=== PATIENT | male | born 1995 | race Caucasian/White ===

== ENCOUNTER 2019-09-12 03:15 | Emergency (ER) | payer OTHER ==
[~2019-09-12] VITALS: Ht 182.9 cm; Wt 92.2 kg
--- NOTE | 2019-09-12 03:18 | PHYS DOC ---
General Adult HPI: HPI: "... I was using a hand saw on some wood...and slipped..caught my fingers good..." Patient is a 24 year old male who presents with above hx and complaints of 3 and 4 th Lt.hand finger lacerations. Patient has jagged avulsed type lacerations to the tips of fourth and third fingers. Lacerations are approximately 2 cm each in length. Laceration on fourth finger does not require repair but nail was trimmed back to the edge of laceration. Laceration on third finger avascular skin trimmed. Patient is normally healthy. Patient works at [employer]. Patient thinks his last tetanus approximately 5 years ago. Patient is right-hand dominant. No history of immunosuppression. No history of recent travel outside [facility]. Review of Systems: Review of Systems: Constitutional: Denies fever or chills Eyes: Denies change in visual acuity HENT: Denies nasal congestion or sore throat Respiratory: Denies cough or shortness of breath Cardiovascular: Denies chest pain or edema GI: Denies abdominal pain, nausea, vomiting, bloody stools or diarrhea : Denies dysuria Musculoskeletal: Denies back pain or joint pain Integument: Denies rash. Complains of lacerations to left hand Neurologic: Denies headache, focal weakness or sensory changes Endocrine: Denies polyuria or polydipsia Lymphatic: Denies swollen glands Psychiatric: Denies depression or anxiety Heart Score: Risk Factors: Risk Factors: DM, Current or recent (<one month) smoker, HTN, HLP, family h istory of CAD, obesity. Risk Scores: Score 0 - 3: 2.5% MACE over next 6 weeks - Discharge Home Score 4 - 6: 20.3% MACE over next 6 weeks - Admit for Clinical Observation Score 7 - 10: 72.7% MACE over next 6 weeks - Early Invasive Strategies Family History: Family History: Noncontributory Current Medications: Current Meds: See nursing for home meds Allergies: Allergies: No known drug allergies Physical Exam: PE: Constitutional: Well developed, well nourished, no acute distress, non-toxic appearance. [] HENT: Normocephalic, atraumatic, bilateral external ears normal, oropharynx moist, no oral exudates, nose normal. [] Eyes: PERRLA, EOMI, conjunctiva normal, no discharge. [] Neck: Normal range of motion, no tenderness, supple, no stridor. [] Cardiovascular:Heart rate regular rhythm, no murmur [] Lungs & Thorax: Bilateral breath sounds clear to auscultation [] Abdomen: Bowel sounds normal, soft, no tenderness, no masses, no pulsatile masses. [] Skin: Warm, dry, no erythema, no rash. [] Complaints of laceration as per HPI Back: No tenderness, no CVA tenderness. [] Extremities: No tenderness, no cyanosis, no clubbing, ROM intact, no edema. [] Neurologic: Alert and oriented X 3, normal motor function, normal sensory function, no focal deficits noted. [] Psychologic: Affect normal, judgement normal, mood normal. [] EKG: EKG: [] Radiology/Procedures: Radiology/Procedures: [] Course & Med Decision Making: Course & Med Decision Making Pertinent Labs and Imaging studies reviewed. (See chart for details) Laceration repair- Fingers cleaned with saline and Betadine. Patient received a digital block of 2% lidocaine as well as local infiltration of lidocaine at laceration sites. Patient then scrubbed hand and sink under running water and surgical soap,. Laceration re irrigated with normal saline and closed with 4-0 Prolene x6 simple sutures to 3 rd finger. Laceration on 4th finger did not require repair but as HPI nail was trimmed back to laceration edge. Patient's tetanus was updated. Dressing applied back to tracing. Patient keep laceration clean and dry. Dressing may stay in place if it does not become soiled or wet next 3 days. Patient to monitor for infection. Patient return if any concerns. Patient take [id number] Tylenol and ibuprofen. Patient's sutures to be removed in 10 days. [] Dragon Disclaimer: Dragon Disclaimer: This electronic medical record was generated, in whole or in part, using a voice recognition dictation system. Departure Departure: Disposition: 01 HOME/RESIDENCE PRIOR TO ADM Condition: STABLE Referrals: PCP,NO (PCP) Karla Disclaimer This chart was dictated in whole or in part using Voice Recognition software in a busy, high-work load, and often noisy Emergency Department environment. It may contain unintended and wholly unrecognized errors or omissions. Dragon Disclaimer This chart was dictated in whole or in part using Voice Recognition software in a busy, high-work load, and often noisy Emergency Department environment. It may contain unintended and wholly unrecognized errors or omissions. ANNIE ANDREW MD Sep 12, 2019 03:18
[2019-09-12] MEDS ORDERED: LIDOCAINE 2% 20 ML VIAL. ONE (03:26)
[2019-09-12] MEDS ORDERED: NEOMY/BACITR/POLYMYXIN OINT PACKET. TP ONE (03:52)
[2019-09-12] MEDS ORDERED: HYDROcodon/IBUPROFEN 7.5/200MG 1 TAB TABLET ONE (04:03)
[2019-09-12] MEDS ORDERED: DIPH,PERTUSS(ACELL),TET VAC/PF 0.5 ML SYRINGE. VAX IM ONE (04:03)
[2019-09-12] MEDS: TETANUS AND DIPHTHERIA TOX/PF 0.5 ML VIAL. VAX IM ONE (04:15)
[2019-09-12] MEDS: LIDOCAINE 2% 20 ML VIAL. IJ ONE (04:15)
[2019-09-12] MEDS: BACITRACIN ZINC TOPICAL OINT PACKET. TP ONE (04:15)
[2019-09-12] MEDS: HYDROcodon/IBUPROFEN 7.5/200MG 1 TAB TABLET PO ONE (04:15)
[2019-09-12] MEDS: DIPH,PERTUSS(ACELL),TET VAC/PF 0.5 ML SYRINGE. VAX IM ONE (04:20)
[2019-09-12] MEDS: NEOMY/BACITR/POLYMYXIN OINT PACKET. TP ONE (04:30)
== END 2019-09-12 04:25 | disposition home or self-care (01) ==
LOC: ER 03:15
DX: S61.213A Laceration without foreign body of left middle finger without damage to nail, initial encounter (principal); S61.215A Laceration without foreign body of left ring finger without damage to nail, initial encounter; W27.8XXA Contact with other nonpowered hand tool, initial encounter; Y93.89 Activity, other specified; Y92.89 Other specified places as the place of occurrence of the external cause; Y99.8 Other external cause status
CPT/HCPCS: 11719; 12001; 90471; 90715; 99284-25; J2001